=== PATIENT | male | born 1985 | race Caucasian/White ===

== ENCOUNTER 2025-04-07 18:58 | Inpatient (IN) | payer OTHER ==
[~2025-04-07] VITALS: Ht 175.3 cm; Wt 95.5 kg
[2025-04-07 19:58] LABS: PLATELET COUNT (AUTO) 494 K/uL (150-450); RED BLOOD CELL COUNT(AUTO) 4.51 MIL/uL (4.50-5.90); RED CELL DISTRIBUTION WIDTH 13.0 % (11.5-14.5); WHITE BLOOD COUNT (AUTO) 8.2 K/uL (4.5-11.0)
[2025-04-07 20:06] LABS: CALCIUM, TOTAL 9.6 mg/dL (8.8-10.5); CREATININE 1.63 mg/dL (0.60-1.30); GLOMERULAR FILTR. RATE CALC 47.0 mL/min (>60); GLUCOSE,RANDOM 176.0 mg/dL (70-110); SODIUM SERUM 133.0 mmol/L (136-145); UREA NITROGEN, BLOOD 32.0 mg/dL (7-18)
[2025-04-07 20:16] LABS: LACTIC ACID 1.3 mmol/L (0.4-2.0)
[2025-04-07] MEDS: CEFEPIME HCL 2 GM in DEXTROSE 5%-WATER 50 ML IV ONE (20:25)
[2025-04-07] MEDS: VANCOMYCIN 1.5 GM/WATER(PEG) 300 ML IV ONE (20:25)
[2025-04-07] MEDS ORDERED: GADOTERATE MEGLUMINE 10 MMOL/20 ML VIAL IVP ONE (20:33)
[2025-04-07] MEDS ORDERED: MAGNESIUM HYDROXIDE SUSPENSION 30 ML UDCUP PO PRN (21:15)
[2025-04-07] MEDS ORDERED: ONDANSETRON HCL 4 MG/2 ML VIAL IVP PRN (21:15)
[2025-04-07] MEDS ORDERED: HYDROCODONE/ACETAMINOPHEN 5-325 MG TABLET PO PRN (21:15)
[2025-04-07] MEDS ORDERED: BISACODYL 10 MG RECTAL RECTAL SUPPOSITORY PR PRN (21:15)
[2025-04-07] MEDS ORDERED: MORPHINE SULFATE 2 MG/ML SYRINGE IVP PRN (21:15)
[2025-04-07] MEDS ORDERED: DEXTROSE 50%-WATER 25 GM/50 ML SYRINGE IVP PRN (21:15)
[2025-04-07] MEDS ORDERED: ALBUTEROL SULFATE 2.5 MG/0.5 ML NEB SOLUTION NEB PRN (21:15)
[2025-04-07] MEDS ORDERED: IPRATROPIUM BROMIDE 0.5 MG/2.5 ML NEB SOLUTION NEB PRN (21:15)
[2025-04-07] MEDS ORDERED: ACET-66 PO (21:26)
[2025-04-07] MEDS ORDERED: LINE600T14 PO (21:26)
[2025-04-07] MEDS ORDERED: METF-910 PO (21:26)
[2025-04-07] MEDS ORDERED: INSREG SQ (21:28)
[2025-04-07 23:22] VITALS: BP 151/95; PULSE 82; RESP 18; TEMP 97.9; O2SAT 97
[2025-04-07] MEDS: HEPARIN SODIUM,PORCINE 5,000 UNITS/ML VIAL SQ SCH (23:52)
[2025-04-08] MEDS: INSULIN LISPRO 100 UNITS/ML SQ PRN (06:17)
[2025-04-08 06:38] LABS: CALCIUM, TOTAL 9.3 mg/dL (8.8-10.5); CREATININE 1.16 mg/dL (0.60-1.30); GLOMERULAR FILTR. RATE CALC > 60 mL/min (>60); GLUCOSE,RANDOM 158 mg/dL (70-110); SODIUM SERUM 137 mmol/L (136-145); UREA NITROGEN, BLOOD 23 mg/dL (7-18)
[2025-04-08 08:00] VITALS: BP 126/84; PULSE 76; RESP 19; TEMP 97.7; O2SAT 95
[2025-04-08] MEDS ORDERED: SODIUM CHLORIDE 0.9% 500 ML IV ONE (08:04)
[2025-04-08] MEDS: PANTOPRAZOLE SODIUM 40 MG DR TABLET PO SCH (08:08)
[2025-04-08] MEDS: VANCOMYCIN 1GM/WATER(PEG/NADA) 200 ML IV SCH ×2 (08:08→16:22)
[2025-04-08 15:56] LABS: GLUCOMETER DEV NAME(LOC) 6N.2C; GLUCOSE,POINT OF CARE 181 MG/DL (70-110)
[2025-04-08 15:56] LABS: GLUCOMETER DEV NAME(LOC) 6S.1D; GLUCOSE,POINT OF CARE 158 MG/DL (70-110)
[2025-04-08 20:04] VITALS: BP 111/81; PULSE 83; RESP 18; TEMP 98.2; O2SAT 98
[2025-04-09] MEDS: ZOLPIDEM TARTRATE 5 MG TABLET PO PRN (02:15)
[2025-04-09 05:31] LABS: GLUCOMETER DEV NAME(LOC) 6N.2C; GLUCOSE,POINT OF CARE 134 MG/DL (70-110)
[2025-04-09 05:31] LABS: GLUCOMETER DEV NAME(LOC) 6N.2C; GLUCOSE,POINT OF CARE 185 MG/DL (70-110)
[2025-04-09 05:59] VITALS: BP 101/70; PULSE 73; RESP 18; TEMP 98.2; O2SAT 95
[2025-04-09 07:10] LABS: CALCIUM, TOTAL 9.4 mg/dL (8.8-10.5); CREATININE 1.16 mg/dL (0.60-1.30); GLOMERULAR FILTR. RATE CALC > 60 mL/min (>60); GLUCOSE,RANDOM 153 mg/dL (70-110); SODIUM SERUM 137 mmol/L (136-145); UREA NITROGEN, BLOOD 22 mg/dL (7-18)
[2025-04-09 07:41] LABS: GLUCOMETER DEV NAME(LOC) 6S.1D; GLUCOSE,POINT OF CARE 160 MG/DL (70-110)
[2025-04-09 08:05] VITALS: BP 121/85; PULSE 78; RESP 18; TEMP 98.1; O2SAT 95
[2025-04-09] MEDS: VANCOMYCIN 1.25 GM/WATER(PEG) 250 ML IV SCH (08:23)
[2025-04-09 14:51] LABS: GLUCOMETER DEV NAME(LOC) 6N.2C; GLUCOSE,POINT OF CARE 173 MG/DL (70-110)
[2025-04-09 17:31] LABS: GLUCOMETER DEV NAME(LOC) 6N.2C; GLUCOSE,POINT OF CARE 141 MG/DL (70-110)
[2025-04-09 19:25] VITALS: BP 110/79; PULSE 91; RESP 18; TEMP 98.1; O2SAT 96
[2025-04-10 04:30] VITALS: BP 106/71; PULSE 80; RESP 18; TEMP 97.7; O2SAT 97
[2025-04-10 05:55] LABS: CALCIUM, TOTAL 9.7 mg/dL (8.8-10.5); CREATININE 1.15 mg/dL (0.60-1.30); GLOMERULAR FILTR. RATE CALC > 60 mL/min (>60); GLUCOSE,RANDOM 151 mg/dL (70-110); SODIUM SERUM 138 mmol/L (136-145); UREA NITROGEN, BLOOD 27 mg/dL (7-18)
[2025-04-10 06:41] LABS: GLUCOMETER DEV NAME(LOC) 6S.1D; GLUCOSE,POINT OF CARE 160 MG/DL (70-110)
[2025-04-10 08:09] VITALS: BP 98/75; PULSE 83; RESP 18; TEMP 97.5; O2SAT 97
[2025-04-10 13:20] LABS: GLUCOMETER DEV NAME(LOC) 6N.2C; GLUCOSE,POINT OF CARE 214 MG/DL (70-110)
[2025-04-10 15:59] VITALS: BP 117/83; PULSE 82; RESP 19; TEMP 98.2; O2SAT 96
[2025-04-10 18:45] LABS: GLUCOMETER DEV NAME(LOC) 6N.2C; GLUCOSE,POINT OF CARE 142 MG/DL (70-110)
[2025-04-10 18:45] LABS: GLUCOMETER DEV NAME(LOC) 6S.2; GLUCOSE,POINT OF CARE 171 MG/DL (70-110)
[2025-04-10 19:38] VITALS: BP 103/70; PULSE 89; RESP 19; TEMP 97.7; O2SAT 96
[2025-04-10 20:46] LABS: GLUCOMETER DEV NAME(LOC) 6S.2; GLUCOSE,POINT OF CARE 140 MG/DL (70-110)
[2025-04-11 04:24] VITALS: BP 110/73; PULSE 75; RESP 18; TEMP 98.1; O2SAT 97
[2025-04-11 06:21] LABS: GLUCOMETER DEV NAME(LOC) 6S.2; GLUCOSE,POINT OF CARE 161 MG/DL (70-110)
[2025-04-11 08:08] VITALS: BP 99/69; PULSE 86; RESP 18; TEMP 97.9; O2SAT 96
[2025-04-11 08:20] LABS: CALCIUM, TOTAL 9.3 mg/dL (8.8-10.5); CREATININE 1.15 mg/dL (0.60-1.30); GLOMERULAR FILTR. RATE CALC > 60 mL/min (>60); GLUCOSE,RANDOM 179 mg/dL (70-110); SODIUM SERUM 137 mmol/L (136-145); UREA NITROGEN, BLOOD 30 mg/dL (7-18)
[2025-04-11 19:30] VITALS: BP 110/71; PULSE 88; RESP 18; TEMP 98.1; O2SAT 95
[2025-04-11 20:11] LABS: GLUCOMETER DEV NAME(LOC) 6S.2; GLUCOSE,POINT OF CARE 173 MG/DL (70-110)
[2025-04-11 20:11] LABS: GLUCOMETER DEV NAME(LOC) 6S.2; GLUCOSE,POINT OF CARE 154 MG/DL (70-110)
[2025-04-11] MEDS: ACETAMINOPHEN 325 MG TABLET PO PRN (21:01)
[2025-04-12 04:38] VITALS: BP 121/90; PULSE 75; RESP 18; TEMP 97.5; O2SAT 95
[2025-04-12 06:01] LABS: GLUCOMETER DEV NAME(LOC) 6N.2C; GLUCOSE,POINT OF CARE 172 MG/DL (70-110)
[2025-04-12 07:07] LABS: CALCIUM, TOTAL 9.2 mg/dL (8.8-10.5); CREATININE 1.13 mg/dL (0.60-1.30); GLOMERULAR FILTR. RATE CALC > 60 mL/min (>60); GLUCOSE,RANDOM 155 mg/dL (70-110); SODIUM SERUM 138 mmol/L (136-145); UREA NITROGEN, BLOOD 30 mg/dL (7-18)
[2025-04-12 08:00] VITALS: BP 97/68; PULSE 86; RESP 18; TEMP 97.9; O2SAT 100
[2025-04-12] MEDS: VANCOMYCIN 1.5 GM/WATER(PEG) 300 ML IV SCH (08:40)
[2025-04-12 12:40] LABS: GLUCOMETER DEV NAME(LOC) 6S.2; GLUCOSE,POINT OF CARE 220 MG/DL (70-110)
[2025-04-12 12:40] LABS: GLUCOMETER DEV NAME(LOC) 6S.2; GLUCOSE,POINT OF CARE 173 MG/DL (70-110)
[2025-04-12 17:36] LABS: GLUCOMETER DEV NAME(LOC) 6S.2; GLUCOSE,POINT OF CARE 143 MG/DL (70-110)
[2025-04-12 19:25] VITALS: BP 105/75; PULSE 84; RESP 18; TEMP 98.4; O2SAT 96
== END 2025-04-12 20:36 | DRG 603 ==
LOC: EMS 18:59 → EDH 21:14 → 6N 22:56
PROVIDERS: ADMIT Hospitalist; ATTEND Hospitalist
DX: L03.115 Cellulitis of right lower limb (principal); N17.9 Acute kidney failure, unspecified; Z16.24 Resistance to multiple antibiotics; L03.116 Cellulitis of left lower limb; E11.621 Type 2 diabetes mellitus with foot ulcer; I10 Essential (primary) hypertension; D75.839 Thrombocytosis, unspecified; S91.301A Unspecified open wound, right foot, initial encounter; S91.302A Unspecified open wound, left foot, initial encounter; X58.XXXA Exposure to other specified factors, initial encounter; Y93.89 Activity, other specified; Y92.89 Other specified places as the place of occurrence of the external cause; Y99.8 Other external cause status
CPT/HCPCS: 73720; 80048; 80202; 82962; 83605; 85025; 87040; 96365; 96366; 96368; 99285; J0692; J1644; J7040; J7060; 36415-L1; 36415-TC

== ENCOUNTER 2025-04-29 17:30 | Inpatient (IN) | payer OTHER ==
[~2025-04-29] VITALS: Ht 175.3 cm; Wt 81.8 kg
[~2025-04-29 17:30] MED LIST: ACET-66 PO; INSREG SQ; LINE600T14 PO; METF-910 PO
[2025-04-29 18:20] LABS: PLATELET COUNT (AUTO) 359 K/uL (150-450); RED BLOOD CELL COUNT(AUTO) 4.56 MIL/uL (4.50-5.90); RED CELL DISTRIBUTION WIDTH 13.4 % (11.5-14.5); WHITE BLOOD COUNT (AUTO) 6.0 K/uL (4.5-11.0)
[2025-04-29 18:22] LABS: ERYTHROCYTE SEDIMENTATION RATE 75 MM/HR (0-15)
[2025-04-29 18:26] LABS: CALCIUM, TOTAL 9.0 mg/dL (8.8-10.5); CREATININE 1.21 mg/dL (0.60-1.30); GLOMERULAR FILTR. RATE CALC > 60 mL/min (>60); GLUCOSE,RANDOM 137 mg/dL (70-110); SODIUM SERUM 138 mmol/L (136-145); UREA NITROGEN, BLOOD 23 mg/dL (7-18)
[2025-04-29 18:36] LABS: LACTIC ACID 1.3 mmol/L (0.4-2.0)
[2025-04-29 18:44] LABS: C-REACTIVE PROTEIN QUANT 0.63 mg/dL (0.00-0.30)
[2025-04-29] MEDS: MORPHINE SULFATE 2 MG/ML SYRINGE IVP ONE (18:51)
[2025-04-29] MEDS: CEFEPIME HCL 2 GM in DEXTROSE 5%-WATER 50 ML IV ONE (18:52)
[2025-04-29] MEDS: VANCOMYCIN 1.25 GM/WATER(PEG) 250 ML IV ONE (18:52)
[2025-04-29] MEDS ORDERED: ONDANSETRON HCL 4 MG/2 ML VIAL IVP PRN (19:00)
[2025-04-29] MEDS: DOCUSATE SODIUM 100 MG CAPSULE PO SCH (20:18)
[2025-04-29] MEDS: VANCOMYCIN 500 MG/WATER(PEG) 100 ML IV ONE (20:18)
[2025-04-29 22:57] VITALS: BP 101/77; PULSE 90; RESP 19; TEMP 97.9; O2SAT 97
[2025-04-29] MEDS: HEPARIN SODIUM,PORCINE 5,000 UNITS/ML VIAL SQ SCH (23:21)
[2025-04-30 06:33] LABS: PLATELET COUNT (AUTO) 355 K/uL (150-450); RED BLOOD CELL COUNT(AUTO) 4.39 MIL/uL (4.50-5.90); RED CELL DISTRIBUTION WIDTH 13.4 % (11.5-14.5); WHITE BLOOD COUNT (AUTO) 5.8 K/uL (4.5-11.0)
[2025-04-30 06:43] LABS: CALCIUM, TOTAL 8.8 mg/dL (8.8-10.5); CREATININE 1.08 mg/dL (0.60-1.30); GLOMERULAR FILTR. RATE CALC > 60 mL/min (>60); GLUCOSE,RANDOM 106 mg/dL (70-110); SODIUM SERUM 140 mmol/L (136-145); UREA NITROGEN, BLOOD 21 mg/dL (7-18)
[2025-04-30] MEDS ORDERED: SODIUM CHLORIDE 0.9% 250 ML IV ONE (08:40)
[2025-04-30 09:00] VITALS: BP 118/87; PULSE 89; RESP 18; TEMP 97.9; O2SAT 100
[2025-04-30] MEDS: VANCOMYCIN 1.25 GM/WATER(PEG) 250 ML IV SCH (09:40)
[2025-04-30 20:18] VITALS: BP 106/72; PULSE 83; RESP 18; TEMP 98.4; O2SAT 96
[2025-05-01 05:56] VITALS: BP 110/78; PULSE 77; RESP 18; TEMP 97.7; O2SAT 93
[2025-05-01 07:19] LABS: CALCIUM, TOTAL 9.1 mg/dL (8.8-10.5); CREATININE 0.99 mg/dL (0.60-1.30); GLOMERULAR FILTR. RATE CALC > 60 mL/min (>60); GLUCOSE,RANDOM 121 mg/dL (70-110); SODIUM SERUM 138 mmol/L (136-145); UREA NITROGEN, BLOOD 15 mg/dL (7-18)
[2025-05-01 08:17] VITALS: BP 120/88; PULSE 79; RESP 18; TEMP 98.1; O2SAT 97
[2025-05-01 16:30] VITALS: BP 107/74; PULSE 82; RESP 18; TEMP 98.1; O2SAT 98
[2025-05-01] MEDS ORDERED: DEXTROSE 50%-WATER 25 GM/50 ML SYRINGE IVP PRN (19:45)
[2025-05-01 20:15] LABS: GLUCOMETER DEV NAME(LOC) 4E.2; GLUCOSE,POINT OF CARE 177 MG/DL (70-110)
[2025-05-01] MEDS: INSULIN LISPRO 100 UNITS/ML SQ PRN (20:24)
[2025-05-01] MEDS: INSULIN GLARGINE,HUM.REC.ANLOG 100 UNITS/ML SQ SCH (20:25)
[2025-05-01] MEDS: ACETAMINOPHEN 325 MG TABLET PO PRN (20:30)
[2025-05-02 03:26] VITALS: BP 102/61; PULSE 80; RESP 18; TEMP 98; O2SAT 98
[2025-05-02 06:10] LABS: GLUCOMETER DEV NAME(LOC) 4E.2; GLUCOSE,POINT OF CARE 121 MG/DL (70-110)
[2025-05-02 07:25] LABS: CREATININE 1.10 mg/dL (0.60-1.30); GLOMERULAR FILTR. RATE CALC > 60 mL/min (>60); GLUCOSE,RANDOM 124 mg/dL (70-110); SODIUM SERUM 137 mmol/L (136-145); UREA NITROGEN, BLOOD 18 mg/dL (7-18)
[2025-05-02 07:50] LABS: CALCIUM, TOTAL 9.1 mg/dL (8.8-10.5)
[2025-05-02 08:00] VITALS: BP 111/85; PULSE 83; RESP 19; TEMP 97.3; O2SAT 98
[2025-05-02] MEDS ORDERED: GADOTERATE MEGLUMINE 10 MMOL/20 ML VIAL IVP ONE (08:55)
[2025-05-02 22:06] LABS: HEPATITIS C AB (EIA) Non Reactive (Non Reactive)
[2025-05-03 05:05] VITALS: BP 100/65; PULSE 75; RESP 18; TEMP 97.6; O2SAT 96
[2025-05-03 07:08] LABS: CALCIUM, TOTAL 9.3 mg/dL (8.8-10.5); CREATININE 1.03 mg/dL (0.60-1.30); GLOMERULAR FILTR. RATE CALC > 60 mL/min (>60); GLUCOSE,RANDOM 118 mg/dL (70-110); SODIUM SERUM 137 mmol/L (136-145); UREA NITROGEN, BLOOD 16 mg/dL (7-18)
[2025-05-03 07:41] LABS: GLUCOMETER DEV NAME(LOC) 6S.2; GLUCOSE,POINT OF CARE 173 MG/DL (70-110)
[2025-05-03 07:41] LABS: GLUCOMETER DEV NAME(LOC) 6S.2; GLUCOSE,POINT OF CARE 138 MG/DL (70-110)
[2025-05-03 07:41] LABS: GLUCOMETER DEV NAME(LOC) 6S.2; GLUCOSE,POINT OF CARE 125 MG/DL (70-110)
[2025-05-03 08:00] VITALS: BP 103/70; PULSE 62; RESP 20; TEMP 97.3; O2SAT 100
[2025-05-03 15:21] LABS: GLUCOMETER DEV NAME(LOC) 4E.2; GLUCOSE,POINT OF CARE 167 MG/DL (70-110)
[2025-05-03 15:50] VITALS: BP 121/82; PULSE 90; RESP 20; TEMP 97.9; O2SAT 100
[2025-05-03 16:26] LABS: GLUCOMETER DEV NAME(LOC) 6N.1C; GLUCOSE,POINT OF CARE 124 MG/DL (70-110)
[2025-05-03 20:19] VITALS: BP 102/79; PULSE 89; RESP 18; TEMP 98.6; O2SAT 98
[2025-05-03] MEDS ORDERED: SODIUM CHLORIDE 0.9% 250 ML IV ONE (20:22)
[2025-05-04 05:07] VITALS: BP 103/67; PULSE 81; RESP 18; TEMP 97.9; O2SAT 97
[2025-05-04 05:16] LABS: GLUCOMETER DEV NAME(LOC) 6N.1C; GLUCOSE,POINT OF CARE 163 MG/DL (70-110)
[2025-05-04 08:00] VITALS: BP 113/74; PULSE 84; RESP 18; TEMP 97.9; O2SAT 96
[2025-05-04 09:38] LABS: CALCIUM, TOTAL 9.5 mg/dL (8.8-10.5); CREATININE 1.03 mg/dL (0.60-1.30); GLOMERULAR FILTR. RATE CALC > 60 mL/min (>60); GLUCOSE,RANDOM 143 mg/dL (70-110); SODIUM SERUM 136 mmol/L (136-145); UREA NITROGEN, BLOOD 21 mg/dL (7-18)
[2025-05-04 10:25] LABS: GLUCOMETER DEV NAME(LOC) 4E.2; GLUCOSE,POINT OF CARE 149 MG/DL (70-110)
[2025-05-04] MEDS: MUPIROCIN CALCIUM 2% 15 GM CREAM TP SCH (12:19)
[2025-05-04 22:11] LABS: GLUCOMETER DEV NAME(LOC) 4E.2; GLUCOSE,POINT OF CARE 142 MG/DL (70-110)
[2025-05-04 22:51] LABS: GLUCOMETER DEV NAME(LOC) 6S.2; GLUCOSE,POINT OF CARE 121 MG/DL (70-110)
== END 2025-05-04 20:59 | DRG 603 ==
LOC: EMS 17:30 → EDH 18:47 → 6S 22:35
PROVIDERS: ADMIT Internal Medicine; ATTEND Internal Medicine
DX: L03.116 Cellulitis of left lower limb (principal); L97.529 Non-pressure chronic ulcer of other part of left foot with unspecified severity; E11.621 Type 2 diabetes mellitus with foot ulcer; E11.65 Type 2 diabetes mellitus with hyperglycemia; L08.9 Local infection of the skin and subcutaneous tissue, unspecified; Z79.84 Long term (current) use of oral hypoglycemic drugs
CPT/HCPCS: 73720; 80048; 80202; 82962; 83036; 83605; 83735; 85025; 85651; 86140; 86803; 87040; 87340; 93926; 99285; J0692; J1644; J1815; J2270; J7050; J7060